=== PATIENT | male | born 1980 | race Caucasian/White ===

== ENCOUNTER 2024-03-14 06:52 | Emergency (ER) | payer SELFPAY ==
[~2024-03-14] VITALS: Ht 162.6 cm; Wt 79.8 kg
[2024-03-14 07:06] VITALS: BP 173/124; PULSE 101; RESP 18; TEMP 98.7; O2SAT 99
[2024-03-14] MEDS ORDERED: MUPI15CR11 TP (07:54)
== END 2024-03-14 08:08 | disposition home or self-care (01) ==
LOC: ER 06:52
DX: T23.072A Burn of unspecified degree of left wrist, initial encounter (principal); X10.2XXA Contact with fats and cooking oils, initial encounter; Y93.G3 Activity, cooking and baking; Y92.89 Other specified places as the place of occurrence of the external cause; Y99.8 Other external cause status
CPT/HCPCS: 10060; 99282

== ENCOUNTER 2024-11-14 21:59 | Emergency (ER) | payer SELFPAY ==
[~2024-11-14] VITALS: Ht 162.6 cm; Wt 85.0 kg
[~2024-11-14 21:59] MED LIST: MUPI15CR11 TP
[2024-11-14 22:12] VITALS: TEMP 36.5; O2SAT 99
[2024-11-14] MEDS ORDERED: ATENOLOL 25MG TABLET PO ONE (23:00)
[2024-11-14] MEDS ORDERED: ATENOLOL 25MG TABLET PO NR (23:00)
[2024-11-14 23:13] LABS: BASOPHILS % 1.2 % (0.0-2.0); EOSINOPHILS % 6.6 % (0.0-5.0); HEMATOCRIT. 42.8 % (42.0-52.0); HEMOGLOBIN. 14.4 g/dL (14.0-18.0); LYMPHOCYTES % 19.0 % (20.0-50.0); MEAN PLATELET VOLUME 9.1 fl (7.4-10.4); MONOCYTES % 7.3 % (2.0-8.0); NEUTROPHILS % 65.9 % (40.0-76.0); PLATELET 242 x1000/uL (130-400); RED BLOOD CELL COUNT 4.76 mill/uL (4.7-6.1); RED CELL DISTRIBUTION WIDTH 14.0 % (11.6-14.6)
[2024-11-14] MEDS: KETOROLAC 30MG/ML VIAL IM ONE (23:17)
[2024-11-14] MEDS: CEPHALEXIN 250MG CAPSULE PO ONE (23:19)
[2024-11-14] MEDS: DEXAMETHASONE 4MG/ML 1ML VIAL IM ONE (23:19)
[2024-11-14 23:25] LABS: CREATININE 1.1 mg/dL (0.6-1.3)
[2024-11-14 23:26] LABS: UREA NITROGEN BLOOD 21 mg/dL (9-23)
[2024-11-14 23:27] LABS: ASPARTATE AMINOTRANSFERASE 21 IU/L (<34)
[2024-11-14 23:28] LABS: BILIRUBIN DIRECT 0.1 mg/dL (<=3.0); BILIRUBIN TOTAL 0.5 mg/dL (0.1-1.0); PROTEIN TOTAL 7.6 g/dL (6.0-8.3)
[2024-11-14] MEDS ORDERED: BO1 TP (23:30)
[2024-11-14] MEDS ORDERED: CEPH500C2 MT (23:30)
[2024-11-14] MEDS ORDERED: METH4TAB95 MT (23:30)
[2024-11-15 00:07] VITALS: BP 175/109; PULSE 90; RESP 16; O2SAT 98
== END 2024-11-15 00:07 | disposition home or self-care (01) ==
LOC: ER 21:59
DX: R21 Rash and other nonspecific skin eruption (principal); I10 Essential (primary) hypertension
CPT/HCPCS: 99284; 80076; 80048; 83690; 83735; 85025; 87040; 36415; 96372; J1885; J1100